=== PATIENT | male | born 2000 | race African-American/Black ===

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

== ENCOUNTER 2020-08-27 17:04 | Emergency (ER) | payer MEDICAID, OTHER ==
[~2020-08-27] VITALS: Ht 185.4 cm; Wt 95.3 kg
[2020-08-27 21:05] VITALS: BP 143/69
[2020-08-29 09:13] LABS: Hepatitis B Surface Antibody Negative
[2020-08-29 11:22] LABS: Hepatitis B Surface Antigen Negative (Negative)
== END 2020-08-27 21:06 | disposition home or self-care (01) ==
LOC: ER 17:04
DX: S61.231A Puncture wound without foreign body of left index finger without damage to nail, initial encounter (principal); X58.XXXA Exposure to other specified factors, initial encounter; Y93.89 Activity, other specified; Y92.89 Other specified places as the place of occurrence of the external cause; Y99.8 Other external cause status
CPT/HCPCS: 36415; 86703; 86706; 86803; 87340

== ENCOUNTER 2020-09-17 12:23 | Emergency (ER) | payer MEDICAID, OTHER ==
[~2020-09-17] VITALS: Ht 185.4 cm; Wt 95.3 kg
[2020-09-17 13:51] VITALS: BP 129/54
[2020-09-17] MEDS ORDERED: IBUPROFEN 800 MG TAB PO ONE (14:00)
== END 2020-09-17 15:01 | disposition home or self-care (01) ==
LOC: ER 12:23
DX: S16.1XXA Strain of muscle, fascia and tendon at neck level, initial encounter (principal); M54.5 Low back pain; M25.511 Pain in right shoulder; V49.9XXA Car occupant (driver) (passenger) injured in unspecified traffic accident, initial encounter; Y93.89 Activity, other specified; Y92.89 Other specified places as the place of occurrence of the external cause; Y99.8 Other external cause status
CPT/HCPCS: 72100; 73030